=== PATIENT | female | born 1975 | race Caucasian/White ===

== ENCOUNTER 2023-03-14 12:28 | Inpatient (IN) | payer MEDICAID ==
[2023-03-14] VITALS (9 sets, daily range): BP systolic 108–156; BP diastolic 61–75; PULSE 108–128; RESP 12–19; TEMP 98–98.6; O2SAT 97
[~2023-03-14] VITALS: Ht 160 cm; Wt 93.5 kg
[2023-03-14] MEDS ORDERED: SODIUM CHLORIDE 0.9% 2,750 ML IV ONE (13:00)
[2023-03-14] MEDS ORDERED: VANCOMYCIN PER PHARMACY 0 MG IV SCH ×2 (13:00→17:00)
[2023-03-14] MEDS ORDERED: ACETAMINOPHEN 325 MG TAB PO PRN ×2 (13:00→17:45)
[2023-03-14] MEDS ORDERED: SODIUM CHLORIDE 0.9% 2,100 ML IV ONE (13:00)
[2023-03-14] MEDS ORDERED: ONDANSETRON HCL 4 MG/2 ML VIAL IV ONE (13:00)
[2023-03-14] MEDS ORDERED: ALBUMIN 25% 100 ML IV ONE (13:00)
[2023-03-14] MEDS ORDERED: HYDROcodone-ACET 5/325MG TAB PO ONE (13:00)
[2023-03-14] MEDS ORDERED: fentaNYL CITRATE 100 MCG/2 ML VL IV ONE (13:00)
[2023-03-14] MEDS ORDERED: PIPERACILLIN-TAZO 4.5GM 100 ML IV SCH (14:00)
[2023-03-14 14:05] LABS: Alanine Aminotransferase 14 U/L (7-40); Albumin 3.1 g/dL (3.2-4.8); Alkaline Phosphatase 68 U/L (46-116); Anion Gap 16 (5-15); Aspartate Aminotransferase 16 U/L (13-40); BUN/Creatinine Ratio 10.8 (10.0-20.0); Bilirubin, Total 0.2 mg/dL (0.2-1.0); Blood Alcohol < 3.0 mg/dL (<10); Blood Urea Nitrogen 32 mg/dL (9-23); Calcium 8.7 mg/dL (8.5-10.1); Carbon Dioxide 14 mmol/L (20-30); Chloride 106 mmol/L (98-107); Glucose 321 mg/dL (74-106); Lactic Acid w/Reflex 5.3 mmol/L (0.4-2.0); Potassium 3.5 mmol/L (3.5-5.1); Sodium 136 mmol/L (136-145); Total Protein 5.9 g/dL (5.7-8.2)
[2023-03-14 14:09] LABS: INR 1.03 (0.9-1.15); Partial Thromboplastin Time 27.9 SEC (24.5-34.5); Prothrombin Time 10.8 sec (9.3-11.8)
[2023-03-14 14:20] LABS: Lipase 40 U/L (12-53); Magnesium 2.3 mg/dL (1.6-2.6)
[2023-03-14 14:30] LABS: Erythrocyte Sedimentation Rate 61 mm/hr (0-20)
[2023-03-14] MEDS ORDERED: VANCOMYCIN 1GM/200ML 200 ML IV ONE (15:30)
[2023-03-14 16:48] LABS: Eosinophils # (auto) 0 10 ^3/uL (0-0.8); Lymphocytes # (auto) 0.8 10 ^3/uL (0.4-5.4)
[2023-03-14 16:49] LABS: Basophils # (auto) 0.1 10 ^3/uL (0-0.2); Basophils % (auto) 0.3 % (0.0-2.0); Hematocrit 19.4 % (36.0-46.0); Mean Corpuscular Hemoglobin 25.8 pg (28.0-32.0); Mean Corpuscular Hgb Conc. 30.8 g/dL (32.0-36.0); Monocytes % (auto) 5.2 % (0.0-12.0); Neutrophils # (auto) 17.8 10 ^3/uL (1.6-8.6); Neutrophils % (auto) 90.5 % (37.0-80.0); Nucleated Red Blood Cells % 0.1 %; Red Blood Cells 2.31 10^6/uL (4.0-5.20); Red Cell Distribution Width 16.5 % (11.8-14.3); White Blood Cell 19.7 10^3/uL (4.4-10.8)
[2023-03-14] MEDS: CEFEPIME 1GM/ 50ML 50 ML IV SCH (17:31)
[2023-03-14] MEDS ORDERED: MORPHINE SULFATE INJ 2 MG/ml SYRG IV PRN (17:45)
[2023-03-14] MEDS ORDERED: NITROGLYCERIN 0.4 MG SL TAB SL PRN (17:45)
[2023-03-14] MEDS ORDERED: DEXTROSE (50%) 50ML SYRG IV PRN (17:45)
[2023-03-14] MEDS ORDERED: GLIP10TA9 PO (17:48)
[2023-03-14] MEDS ORDERED: ATOR20TA50 PO (17:48)
[2023-03-14] MEDS ORDERED: EMPA1TAB PO (17:48)
[2023-03-14] MEDS ORDERED: METO-289 PO (17:48)
[2023-03-14] MEDS ORDERED: GLUC1TES94 (17:48)
[2023-03-14] MEDS ORDERED: LOSA50TA46 PO (17:48)
[2023-03-14 18:10] LABS: Triglycerides 151 mg/dL (< 150)
[2023-03-14 18:11] LABS: LDL Cholesterol 61 mg/dL (< 100)
[2023-03-14 18:12] LABS: Cholesterol 118 mg/dL (< 200); HDL Cholesterol 25 mg/dL (40-59)
[2023-03-14 19:05] LABS: % Iron Saturation 11.4 % (15-50)
[2023-03-14 19:18] LABS: Basophils # (auto) 0.1 10 ^3/uL (0-0.2); Basophils % (auto) 0.4 % (0.0-2.0); Eosinophils # (auto) 0 10 ^3/uL (0-0.8); Hematocrit 18.4 % (36.0-46.0); Lymphocytes # (auto) 0.9 10 ^3/uL (0.4-5.4); Mean Corpuscular Hemoglobin 25.6 pg (28.0-32.0); Mean Corpuscular Hgb Conc. 30.5 g/dL (32.0-36.0); Monocytes # (auto) 0.8 10 ^3/uL (0-1.3); Monocytes % (auto) 4.4 % (0.0-12.0); Neutrophils # (auto) 15.8 10 ^3/uL (1.6-8.6); Neutrophils % (auto) 90.2 % (37.0-80.0); Red Blood Cells 2.19 10^6/uL (4.0-5.20); Red Cell Distribution Width 16.3 % (11.8-14.3); White Blood Cell 17.5 10^3/uL (4.4-10.8)
[2023-03-14 19:25] LABS: Hemoglobin 5.6 g/dL (12.2-16.2)
[2023-03-14 19:36] LABS: Urine Bacteria MANY /hpf (None Seen); Urine Blood Negative /uL (Negative); Urine Clarity HAZY (Clear); Urine Color Colorless (Yellow); Urine Mucus FEW (None Seen); Urine Protein, UAD 1+ (Negative); Urine Specific Gravity 1.009 (1.001-1.035); Urine Urobilinogen Normal (Negative); Urine WBC 2 /hpf (0 - 5)
[2023-03-14 19:40] LABS: Sodium Urine 25 mmol/L (40-220)
[2023-03-14] MEDS: SODIUM CHLORIDE 0.9% 1,000 ML IV SCH (19:44)
[2023-03-14 19:45] LABS: Protein, Urine 61.1 mg/dL (0.0-11.9)
[2023-03-14 19:46] LABS: Amphetamine Screen, Urine Neg (NEGATIVE)
[2023-03-14 19:47] LABS: Barbiturate Scree,Urine Neg (NEGATIVE); Benzodiazephine Screen, Urine Neg (NEGATIVE); Cannabinoid Screen, Urine Neg (NEGATIVE); Cocaine Screen, Urine Neg (NEGATIVE); Creatinine, Urine 58.11 mg/dL (30.0-125.0); Opiate Scree,Urine Neg (NEGATIVE); Phencyclidine Screen, Urine Neg (NEGATIVE); Urine Protein/Creatinine Ratio 1.05
[2023-03-14 20:11] LABS: Chloride 113 mmol/L (98-107); Sodium 142 mmol/L (136-145)
[2023-03-14 20:12] LABS: Anion Gap 12 (5-15); Calcium 7.8 mg/dL (8.5-10.1); Carbon Dioxide 17 mmol/L (20-30)
[2023-03-14 20:17] LABS: BUN/Creatinine Ratio 14.2 (10.0-20.0); Blood Urea Nitrogen 36 mg/dL (9-23); Glucose 133 mg/dL (74-106)
[2023-03-14 20:19] LABS: Anisocytosis Slight; Large Platelets FEW; Macrocytosis Slight; Ovalocytes FEW
[2023-03-14 20:20] LABS: Platelet Estimate Adequa
[2023-03-14] MEDS: ACCU-CHEK COMFORT CURVE STRIP VI SCH (22:48)
[2023-03-14] MEDS: InsuLIN REG 1unit/0.01ml Soln (100units/ml) SC SCH (22:48)
[2023-03-14] MEDS: HYDROcodone-ACET 5/325MG TAB PO PRN (22:54)
[2023-03-14] MEDS: ASCORBIC ACID 500 MG TAB PO SCH (22:54)
[2023-03-15] VITALS (11 sets, daily range): BP systolic 137–170; BP diastolic 59–83; PULSE 86–118; RESP 13–21; TEMP 98–98.6; O2SAT 97–100
[2023-03-15] MEDS: HYDROcodone-ACET 5/325MG TAB PO PRN ×2 (04:06→18:01)
[2023-03-15 06:31] LABS: Basophils % (auto) 0.4 % (0.0-2.0); Eosinophils # (auto) 0 10 ^3/uL (0-0.8); Eosinophils % (auto) 0.1 % (0.0-7.0); Lymphocytes # (auto) 1.2 10 ^3/uL (0.4-5.4)
[2023-03-15 06:36] LABS: Basophils # (auto) 0 10 ^3/uL (0-0.2); Hemoglobin 8.1 g/dL (12.2-16.2); Mean Corpuscular Hemoglobin 27.8 pg (28.0-32.0); Mean Corpuscular Hgb Conc. 31.2 g/dL (32.0-36.0); Mean Corpuscular Volume 89.1 fL (80.0-100.0); Monocytes % (auto) 7.7 % (0.0-12.0); Neutrophils % (auto) 82.8 % (37.0-80.0); Nucleated Red Blood Cells % 0.1 %; Red Blood Cells 2.92 10^6/uL (4.0-5.20); Red Cell Distribution Width 17.6 % (11.8-14.3); White Blood Cell 13.2 10^3/uL (4.4-10.8)
[2023-03-15] MEDS: ACCU-CHEK COMFORT CURVE STRIP VI SCH ×4 (06:36→21:49)
[2023-03-15] MEDS: InsuLIN REG 1unit/0.01ml Soln (100units/ml) SC SCH ×4 (06:36→21:49)
[2023-03-15 06:50] LABS: Albumin 2.9 g/dL (3.2-4.8); Alkaline Phosphatase 54 U/L (46-116); Anion Gap 12 (5-15); Aspartate Aminotransferase 19 U/L (13-40); BUN/Creatinine Ratio 13.9 (10.0-20.0); Bilirubin, Total 0.3 mg/dL (0.2-1.0); Blood Urea Nitrogen 34 mg/dL (9-23); Calcium 7.7 mg/dL (8.7-10.4); Carbon Dioxide 15 mmol/L (20-30); Chloride 113 mmol/L (98-107); Glucose 109 mg/dL (74-106); Sodium 140 mmol/L (136-145); Total Protein 4.8 g/dL (5.7-8.2)
[2023-03-15 06:51] LABS: Alanine Aminotransferase < 9 U/L (7-40)
[2023-03-15] MEDS: SODIUM CHLORIDE 0.9% 1,000 ML IV SCH ×2 (09:07→19:00)
[2023-03-15] MEDS: CEFEPIME 1GM/ 50ML 50 ML IV SCH (09:07)
[2023-03-15] MEDS: ZINC SULFATE 220mg CAP or TAB PO SCH (09:08)
[2023-03-15] MEDS: MULTIPLE VITAMIN TAB PO SCH (09:08)
[2023-03-15] MEDS: ASCORBIC ACID 500 MG TAB PO SCH ×2 (09:08→21:45)
[2023-03-15 10:11] LABS: Basophils # (auto) 0.1 10 ^3/uL (0-0.2); Basophils % (auto) 0.4 % (0.0-2.0); Eosinophils # (auto) 0 10 ^3/uL (0-0.8); Eosinophils % (auto) 0.1 % (0.0-7.0); Hemoglobin 8.5 g/dL (12.2-16.2); Red Cell Distribution Width 17.4 % (11.8-14.3)
[2023-03-15 10:12] LABS: Hematocrit 27.2 % (36.0-46.0); Lymphocytes # (auto) 1.1 10 ^3/uL (0.4-5.4); Lymphocytes % (auto) 7.5 % (10.0-50.0); Mean Corpuscular Hemoglobin 27.2 pg (28.0-32.0); Mean Corpuscular Hgb Conc. 31.4 g/dL (32.0-36.0); Mean Corpuscular Volume 86.6 fL (80.0-100.0); Monocytes % (auto) 7.4 % (0.0-12.0); Neutrophils # (auto) 11.8 10 ^3/uL (1.6-8.6); Neutrophils % (auto) 84.6 % (37.0-80.0); Red Blood Cells 3.14 10^6/uL (4.0-5.20)
[2023-03-15] MEDS ORDERED: VANCOMYCIN 500 MG in D5W 5% 100 ML IV ONE (12:00)
[2023-03-15] MEDS: FERROUS SULFATE 325mg EC TAB PO SCH (17:39)
[2023-03-15] MEDS: METOPROLOL SUCCINATE XL 50 MG TAB PO SCH (17:45)
[2023-03-16] VITALS (8 sets, daily range): BP systolic 142–153; BP diastolic 64–79; PULSE 81–99; RESP 17–20; TEMP 97.5–98.6; O2SAT 96–99
[2023-03-16 05:41] LABS: Chloride 110 mmol/L (98-107); Potassium 4.2 mmol/L (3.5-5.1); Sodium 136 mmol/L (136-145)
[2023-03-16 05:42] LABS: Anion Gap 7 (5-15); Carbon Dioxide 19 mmol/L (20-30)
[2023-03-16 05:43] LABS: Basophils # (auto) 0.1 10 ^3/uL (0-0.2); Basophils % (auto) 0.5 % (0.0-2.0); Calcium 8.1 mg/dL (8.7-10.4); Eosinophils # (auto) 0.1 10 ^3/uL (0-0.8); Eosinophils % (auto) 0.5 % (0.0-7.0); Red Cell Distribution Width 17.6 % (11.8-14.3)
[2023-03-16 05:46] LABS: Hematocrit 25.6 % (36.0-46.0); Hemoglobin 8.2 g/dL (12.2-16.2); Lymphocytes # (auto) 1.2 10 ^3/uL (0.4-5.4); Mean Corpuscular Hemoglobin 28.1 pg (28.0-32.0); Mean Corpuscular Hgb Conc. 32.1 g/dL (32.0-36.0); Mean Corpuscular Volume 87.4 fL (80.0-100.0); Monocytes # (auto) 1.3 10 ^3/uL (0-1.3); Monocytes % (auto) 8.7 % (0.0-12.0); Neutrophils # (auto) 12.5 10 ^3/uL (1.6-8.6); Neutrophils % (auto) 82.3 % (37.0-80.0); Red Blood Cells 2.93 10^6/uL (4.0-5.20); White Blood Cell 15.2 10^3/uL (4.4-10.8)
[2023-03-16 05:47] LABS: Glucose 119 mg/dL (74-106); Uric Acid 6.5 mg/dL (3.1-7.8)
[2023-03-16 05:48] LABS: BUN/Creatinine Ratio 9.2 (10.0-20.0)
[2023-03-16 05:50] LABS: Phosphorus 4.2 mg/dL (2.4-5.1)
[2023-03-16] MEDS: ACCU-CHEK COMFORT CURVE STRIP VI SCH ×4 (06:06→21:38)
[2023-03-16] MEDS: InsuLIN REG 1unit/0.01ml Soln (100units/ml) SC SCH ×2 (06:06→11:30)
[2023-03-16 06:22] LABS: Blood Urea Nitrogen 24 mg/dL (9-23)
[2023-03-16] MEDS: CEFEPIME 1GM/ 50ML 50 ML IV SCH (10:55)
[2023-03-16] MEDS: ZINC SULFATE 220mg CAP or TAB PO SCH (10:56)
[2023-03-16] MEDS: ASCORBIC ACID 500 MG TAB PO SCH ×2 (10:56→21:01)
[2023-03-16] MEDS: FERROUS SULFATE 325mg EC TAB PO SCH (10:56)
[2023-03-16] MEDS: MULTIPLE VITAMIN TAB PO SCH (10:56)
[2023-03-16] MEDS: METOPROLOL SUCCINATE XL 50 MG TAB PO SCH (10:59)
[2023-03-16 11:05] LABS: Folate (Folic Acid) 6.6 ng/mL (>5.38)
[2023-03-16 11:06] LABS: Ferritin 455.5 ng/mL (10-291)
[2023-03-16 11:52] LABS: Urine Bacteria FEW /hpf (None Seen); Urine Blood Negative /uL (Negative); Urine Clarity Clear (Clear); Urine Color Colorless (Yellow); Urine Protein, UAD 1+ (Negative); Urine Urobilinogen Normal (Negative); Urine WBC 1 /hpf (0 - 5)
[2023-03-16 11:59] LABS: Protein, Urine 73.3 mg/dL (0.0-11.9)
[2023-03-16 12:02] LABS: Creatinine, Urine 59.65 mg/dL (30.0-125.0)
[2023-03-17 05:00] VITALS: BP 147/71; PULSE 88; RESP 18; TEMP 98.5; O2SAT 98
[2023-03-17] MEDS: ACCU-CHEK COMFORT CURVE STRIP VI SCH ×3 (06:09→16:36)
[2023-03-17 06:28] LABS: Basophils # (auto) 0.1 10 ^3/uL (0-0.2); Basophils % (auto) 0.5 % (0.0-2.0); Eosinophils # (auto) 0.1 10 ^3/uL (0-0.8); Hemoglobin 7.8 g/dL (12.2-16.2); Lymphocytes # (auto) 1.5 10 ^3/uL (0.4-5.4)
[2023-03-17 06:30] LABS: Eosinophils % (auto) 0.8 % (0.0-7.0); Hematocrit 24.5 % (36.0-46.0); Lymphocytes % (auto) 10.5 % (10.0-50.0); Mean Corpuscular Hemoglobin 27.7 pg (28.0-32.0); Mean Corpuscular Volume 86.6 fL (80.0-100.0); Monocytes % (auto) 7.4 % (0.0-12.0); Neutrophils # (auto) 11.2 10 ^3/uL (1.6-8.6); Neutrophils % (auto) 80.8 % (37.0-80.0); Red Blood Cells 2.83 10^6/uL (4.0-5.20); Red Cell Distribution Width 17.6 % (11.8-14.3); White Blood Cell 13.8 10^3/uL (4.4-10.8)
[2023-03-17 08:00] VITALS: PULSE 77
[2023-03-17 09:00] VITALS: BP 157/85; PULSE 100; RESP 20; TEMP 98.2; O2SAT 96
[2023-03-17] MEDS: MULTIPLE VITAMIN TAB PO SCH (09:05)
[2023-03-17] MEDS: ASCORBIC ACID 500 MG TAB PO SCH (09:05)
[2023-03-17] MEDS: CEFEPIME 1GM/ 50ML 50 ML IV SCH (09:06)
[2023-03-17] MEDS: METOPROLOL SUCCINATE XL 50 MG TAB PO SCH (09:06)
[2023-03-17] MEDS: FERROUS SULFATE 325mg EC TAB PO SCH (09:06)
[2023-03-17] MEDS ORDERED: DAKINS QUARTER STR 0.125% (NaHypochlorite) 473 ML TOPICAL SOL TOP SCH (10:00)
[2023-03-17 11:39] LABS: Chloride 110 mmol/L (98-107); Potassium 4.2 mmol/L (3.5-5.1); Sodium 138 mmol/L (136-145)
[2023-03-17 11:40] LABS: Anion Gap 9 (5-15); Calcium 8.6 mg/dL (8.5-10.1); Carbon Dioxide 19 mmol/L (20-30)
[2023-03-17 11:45] LABS: Blood Urea Nitrogen 23 mg/dL (9-23); Glucose 93 mg/dL (74-106)
[2023-03-17 13:00] VITALS: BP 157/71; PULSE 82; RESP 17; TEMP 97.4; O2SAT 99
[2023-03-17] MEDS ORDERED: amLODIPine BESYLATE 5 MG TAB PO ONE (13:00)
[2023-03-17] MEDS ORDERED: METR-344 PO (15:05)
[2023-03-17] MEDS ORDERED: [UNRECOGNIZED DRUG - CODE] XX (15:05)
[2023-03-17] MEDS ORDERED: AMOX500T86 PO ×2 (15:05)
[2023-03-17] MEDS ORDERED: AMLO1TAB23 PO (15:05)
[2023-03-17] MEDS ORDERED: GAUZ1PAD XX (15:05)
[2023-03-17 17:00] VITALS: BP 158/74; PULSE 77; RESP 17; TEMP 98.1; O2SAT 100
[2023-03-17 17:21] VITALS: BP 157/71; PULSE 100; TEMP 36.3
[2023-03-17] MEDS ORDERED: ATORVASTATIN 20 MG TAB PO SCH (22:00)
[2023-03-18] MEDS ORDERED: METOPROLOL SUCCINATE XL 50 MG TAB PO SCH (10:00)
[2023-03-18] MEDS ORDERED: EMPAGLIFLOZIN 10 MG TAB PO SCH (10:00)
[2023-03-18] MEDS ORDERED: DOXY-448 PO (16:13)
== END 2023-03-17 18:35 | disposition home or self-care (01) | DRG 382 ==
LOC: EDBD 12:28 → ER 12:28 → TELE 17:47 → TELE-EAST 03-15 14:28
PROVIDERS: ADMIT Nurse Practitioner Family; ATTEND Hospitalist
PROC: 30233N1 Transfusion of Nonautologous Red Blood Cells into Peripheral Vein, Percutaneous Approach (ICD-10-PCS; principal; 2023-03-14)
PROC: 05HD33Z Insertion of Infusion Device into Right Cephalic Vein, Percutaneous Approach (ICD-10-PCS; 2023-03-14)
DX: C50.912 Malignant neoplasm of unspecified site of left female breast (principal); N17.9 Acute kidney failure, unspecified; B48.8 Other specified mycoses; E86.0 Dehydration; D62 Acute posthemorrhagic anemia; E11.65 Type 2 diabetes mellitus with hyperglycemia; E66.01 Morbid (severe) obesity due to excess calories; D63.0 Anemia in neoplastic disease; F19.90 Other psychoactive substance use, unspecified, uncomplicated; R91.8 Other nonspecific abnormal finding of lung field; I10 Essential (primary) hypertension; Z68.34 Body mass index [BMI] 34.0-34.9, adult; Z88.0 Allergy status to penicillin; Z85.3 Personal history of malignant neoplasm of breast; Z59.7 Insufficient social insurance and welfare support
CPT/HCPCS: 36415; 70450; 71045; 71250; 74176; 76775; 80048; 80053; 80061; 80202; 80307; 80320; 81001; 82570; 82607; 82728; 82746; 82962; 83036; 83540; 83550; 83605; 83615; 83690; 83735; 83880; 83930; 84100; 84156; 84300; 84443; 84484; 84550; 85025; 85045; 85384; 85610; 85652; 85730; 86141; 86850; 86900; 86901; 86920; 87040; 87086; 93005; G0378; J1815; J2405; J2543; J7060; P9047

== ENCOUNTER 2023-05-04 09:40 | Emergency (ER) | payer MEDICAID ==
[~2023-05-04] VITALS: Ht 160 cm; Wt 78.6 kg
[~2023-05-04 09:40] MED LIST: AMLO1TAB23 PO; ATOR20TA50 PO; DOXY-448 PO; EMPA1TAB PO; GAUZ1PAD XX; GLUC1TES94; METO-289 PO; METR-344 PO; [UNRECOGNIZED DRUG - CODE] XX
[2023-05-04 10:35] VITALS: PULSE 111; RESP 17; TEMP 99.3; O2SAT 98
[2023-05-04 12:12] LABS: Basophils # (auto) 0 10 ^3/uL (0-0.2); Basophils % (auto) 0.4 % (0.0-2.0); Eosinophils # (auto) 0.1 10 ^3/uL (0-0.8); Eosinophils % (auto) 0.7 % (0.0-7.0); Hematocrit 32.6 % (36.0-46.0); Hemoglobin 10.6 g/dL (12.2-16.2); Lymphocytes # (auto) 0.6 10 ^3/uL (0.4-5.4); Lymphocytes % (auto) 5.3 % (10.0-50.0); Mean Corpuscular Hemoglobin 29.1 pg (28.0-32.0); Mean Corpuscular Hgb Conc. 32.5 g/dL (32.0-36.0); Mean Corpuscular Volume 89.4 fL (80.0-100.0); Monocytes # (auto) 0.7 10 ^3/uL (0-1.3); Monocytes % (auto) 5.9 % (0.0-12.0); Neutrophils # (auto) 10.4 10 ^3/uL (1.6-8.6); Neutrophils % (auto) 87.7 % (37.0-80.0); Red Blood Cells 3.65 10^6/uL (4.0-5.20); White Blood Cell 11.8 10^3/uL (4.4-10.8)
[2023-05-04 12:17] LABS: Chloride 113 mmol/L (98-107); Potassium 4.1 mmol/L (3.5-5.1); Sodium 141 mmol/L (136-145)
[2023-05-04 12:18] LABS: Anion Gap 8 (5-15); Calcium 8.9 mg/dL (8.5-10.1); Carbon Dioxide 20 mmol/L (20-30)
[2023-05-04] MEDS: ONDANSETRON HCL 4 MG/2 ML VIAL IV ONE (12:21)
[2023-05-04] MEDS: MORPHINE SULFATE 4 MG/ML SYR/VIAL IV ONE (12:22)
[2023-05-04 12:23] LABS: BUN/Creatinine Ratio 9.7 (10.0-20.0); Blood Urea Nitrogen 18 mg/dL (9-23); Glucose 141 mg/dL (74-106)
[2023-05-04] MEDS: SODIUM CHLORIDE 0.9% 1,000 ML IV ONE (15:18)
[2023-05-04 16:30] VITALS: BP 134/86; PULSE 120; RESP 13; O2SAT 100
== END 2023-05-04 18:22 | disposition left against medical advice (07) ==
LOC: ER 09:40
DX: C50.912 Malignant neoplasm of unspecified site of left female breast (principal); C78.7 Secondary malignant neoplasm of liver and intrahepatic bile duct; I12.9 Hypertensive chronic kidney disease with stage 1 through stage 4 chronic kidney disease, or unspecified chronic kidney disease; N18.9 Chronic kidney disease, unspecified; E78.5 Hyperlipidemia, unspecified; E11.9 Type 2 diabetes mellitus without complications; Z86.73 Personal history of transient ischemic attack (TIA), and cerebral infarction without residual deficits; Z79.899 Other long term (current) drug therapy; Z88.1 Allergy status to other antibiotic agents
CPT/HCPCS: 36415; 71250; 74176; 80048; 83605; 85025; 87040; 96361; 96374; 96375; 99285; J2270; J2405; J7030

== ENCOUNTER 2023-05-06 13:10 | Inpatient (IN) | payer MEDICAID ==
[~2023-05-06] VITALS: Ht 160 cm; Wt 81.5 kg
[2023-05-06 13:55] VITALS: PULSE 130; RESP 14; O2SAT 99
[2023-05-06] MEDS: SODIUM CHLORIDE 0.9% 1,000 ML IV ONE ×4 (14:21→17:54)
[2023-05-06 14:43] LABS: Hematocrit 22.5 % (36.0-46.0); Mean Corpuscular Hemoglobin 27.8 pg (28.0-32.0); Mean Corpuscular Volume 89.5 fL (80.0-100.0); Red Blood Cells 2.51 10^6/uL (4.0-5.20); White Blood Cell 21.1 10^3/uL (4.4-10.8)
[2023-05-06 15:00] LABS: Alanine Aminotransferase 18 U/L (7-40); Albumin 2.9 g/dL (3.2-4.8); Alkaline Phosphatase 71 U/L (46-116); Anion Gap 12 (5-15); Aspartate Aminotransferase 23 U/L (13-40); BUN/Creatinine Ratio 11.3 (10.0-20.0); Basophils % (manual) 0 (0.0-2.0); Bilirubin, Total 0.2 mg/dL (0.2-1.0); Blast Cells 0; Blood Urea Nitrogen 28 mg/dL (9-23); Calcium 8.3 mg/dL (8.5-10.1); Carbon Dioxide 16 mmol/L (20-30); Chloride 111 mmol/L (98-107); Eosinophils % (manual) 0 (0-7); Glucose 186 mg/dL (74-106); Metamyelocytes % 0; Myelocytes % 0; Potassium 4.6 mmol/L (3.5-5.1); Promyelocytes % 0; Reactive Lymphocytes 0; Sodium 139 mmol/L (136-145)
[2023-05-06 15:16] LABS: Magnesium 2.2 mg/dL (1.6-2.6)
[2023-05-06] MEDS: ONDANSETRON HCL 4 MG/2 ML VIAL IV ONE (15:50)
[2023-05-06] MEDS: VANCOMYCIN 1GM/200ML 200 ML IV ONE (15:50)
[2023-05-06 15:51] LABS: Lactic Acid w/Reflex 2.6 mmol/L (0.4-2.0)
[2023-05-06] MEDS: MORPHINE SULFATE 4 MG/ML SYR/VIAL IV ONE (15:51)
[2023-05-06 16:02] LABS: Anisocytosis Slight; Band Neutrophils % (manual) 4; Lymphocytes % (manual) 3 (10.0-50.0); Monocytes % (manual) 3 (0-12); Platelet Estimate Adequate
[2023-05-06] MEDS: SODIUM CHLORIDE 0.9% 500 ML IV ONE (17:14)
[2023-05-06] MEDS: AZTREONAM 1GM INJ 1 GM in D5W 5% 50 ML IV ONE (17:27)
[2023-05-06] MEDS ORDERED: VANCOMYCIN PER PHARMACY 0 MG IV SCH (19:45)
[2023-05-06] MEDS ORDERED: DOCUSATE SOD 100 MG CAP PO PRN (19:45)
[2023-05-06] MEDS ORDERED: ONDANSETRON HCL 4 MG/2 ML VIAL IV PRN (19:45)
[2023-05-06] MEDS ORDERED: DEXTROSE (50%) 50ML SYRG IV PRN (19:45)
[2023-05-06] MEDS ORDERED: VANCOMYCIN 1GM/200ML 200 ML IV ONE (20:45)
[2023-05-06] MEDS: SODIUM CHLORIDE 0.9% 1,000 ML IV SCH (21:09)
[2023-05-06 21:15] LABS: Hematocrit 17.1 % (36.0-46.0)
[2023-05-06 21:24] LABS: INR 1.07 (0.9-1.15); Prothrombin Time 11.2 sec (9.3-11.8)
[2023-05-06 21:57] LABS: Hemoglobin 5.3 g/dL (12.2-16.2)
[2023-05-06] MEDS: CLINDAMYCIN 300MG IV 50 ML IV SCH (22:36)
[2023-05-06] MEDS: ACCU-CHEK COMFORT CURVE STRIP VI SCH (22:36)
[2023-05-06] MEDS: InsuLIN REG 1unit/0.01ml Soln (100units/ml) SC SCH (22:37)
[2023-05-06 23:29] VITALS: PULSE 111; RESP 20; O2SAT 94
[2023-05-06 23:59] LABS: Urine Bacteria MANY /hpf (None Seen); Urine Blood 2+ /uL (Negative); Urine Clarity HAZY (Clear); Urine Color Colorless (Yellow); Urine Protein, UAD 1+ (Negative); Urine Specific Gravity 1.011 (1.001-1.035); Urine Urobilinogen Normal (Negative); Urine WBC 2 /hpf (0 - 5)
[2023-05-07] VITALS (15 sets, daily range): BP systolic 134–153; BP diastolic 59–75; PULSE 93–111; RESP 14–19; TEMP 97.6–99.2; O2SAT 94–98
[2023-05-07] MEDS: MORPHINE SULFATE INJ 2 MG/ml SYRG IV PRN (02:02)
[2023-05-07 06:51] LABS: Basophils # (auto) 0.1 10 ^3/uL (0-0.2); Eosinophils # (auto) 0 10 ^3/uL (0-0.8); Eosinophils % (auto) 0.3 % (0.0-7.0); Nucleated Red Blood Cells % 0.1 %
[2023-05-07 06:55] LABS: Basophils % (auto) 0.9 % (0.0-2.0); Hematocrit 21.5 % (36.0-46.0); Lymphocytes # (auto) 1.2 10 ^3/uL (0.4-5.4); Lymphocytes % (auto) 9.8 % (10.0-50.0); Mean Corpuscular Hemoglobin 28.8 pg (28.0-32.0); Mean Corpuscular Hgb Conc. 31.7 g/dL (32.0-36.0); Mean Corpuscular Volume 90.8 fL (80.0-100.0); Monocytes # (auto) 0.8 10 ^3/uL (0-1.3); Neutrophils # (auto) 9.9 10 ^3/uL (1.6-8.6); Red Blood Cells 2.36 10^6/uL (4.0-5.20); Red Cell Distribution Width 16.4 % (11.8-14.3); White Blood Cell 12.1 10^3/uL (4.4-10.8)
[2023-05-07 07:01] LABS: Alanine Aminotransferase 13 U/L (7-40); Alkaline Phosphatase 57 U/L (46-116); Anion Gap 8 (5-15); Aspartate Aminotransferase 20 U/L (13-40); BUN/Creatinine Ratio 12.1 (10.0-20.0); Blood Urea Nitrogen 25 mg/dL (9-23); Calcium 7.7 mg/dL (8.5-10.1); Carbon Dioxide 18 mmol/L (20-30); Chloride 114 mmol/L (98-107); Glucose 73 mg/dL (74-106); Potassium 4.4 mmol/L (3.5-5.1); Sodium 140 mmol/L (136-145)
[2023-05-07 07:02] LABS: Albumin 2.4 g/dL (3.2-4.8)
[2023-05-07 07:03] LABS: Bilirubin, Total 0.2 mg/dL (0.2-1.0); Total Protein 4.2 g/dL (5.7-8.2)
[2023-05-07 07:09] LABS: Hemoglobin 6.8 g/dL (12.2-16.2)
[2023-05-07] MEDS: VANCOMYCIN 1GM/200ML 200 ML IV SCH (11:21)
[2023-05-07 11:52] LABS: Basophils # (auto) 0 10 ^3/uL (0-0.2); Eosinophils # (auto) 0.2 10 ^3/uL (0-0.8); Eosinophils % (auto) 2.2 % (0.0-7.0); Hematocrit 25.7 % (36.0-46.0); Hemoglobin 7.7 g/dL (12.2-16.2); Lymphocytes # (auto) 0.9 10 ^3/uL (0.4-5.4); Lymphocytes % (auto) 8.8 % (10.0-50.0); Mean Corpuscular Hemoglobin 29.1 pg (28.0-32.0); Mean Corpuscular Hgb Conc. 30.1 g/dL (32.0-36.0); Mean Corpuscular Volume 96.7 fL (80.0-100.0); Monocytes # (auto) 2.7 10 ^3/uL (0-1.3); Neutrophils # (auto) 6.3 10 ^3/uL (1.6-8.6); Red Blood Cells 2.66 10^6/uL (4.0-5.20); White Blood Cell 10.1 10^3/uL (4.4-10.8)
[2023-05-07 21:54] LABS: Hemoglobin 7.7 g/dL (12.2-16.2)
[2023-05-07 21:56] LABS: Hematocrit 24.2 % (36.0-46.0)
[2023-05-08] VITALS (7 sets, daily range): BP systolic 144–162; BP diastolic 60–72; PULSE 71–89; RESP 16–18; TEMP 98.1–99; O2SAT 96–99
[2023-05-08 07:17] LABS: Basophils % (auto) 0.5 % (0.0-2.0); Eosinophils # (auto) 0.1 10 ^3/uL (0-0.8); Lymphocytes # (auto) 0.9 10 ^3/uL (0.4-5.4); Neutrophils # (auto) 7.5 10 ^3/uL (1.6-8.6)
[2023-05-08 07:18] LABS: Basophils # (auto) 0.1 10 ^3/uL (0-0.2); Eosinophils % (auto) 1.3 % (0.0-7.0); Hematocrit 22.6 % (36.0-46.0); Hemoglobin 7.5 g/dL (12.2-16.2); Lymphocytes % (auto) 9.2 % (10.0-50.0); Mean Corpuscular Hgb Conc. 33.3 g/dL (32.0-36.0); Mean Corpuscular Volume 90.1 fL (80.0-100.0); Monocytes # (auto) 0.8 10 ^3/uL (0-1.3); Monocytes % (auto) 8.2 % (0.0-12.0); Neutrophils % (auto) 80.8 % (37.0-80.0); Red Blood Cells 2.51 10^6/uL (4.0-5.20); Red Cell Distribution Width 15.2 % (11.8-14.3); White Blood Cell 9.2 10^3/uL (4.4-10.8)
[2023-05-08 07:32] LABS: Albumin 2.5 g/dL (3.2-4.8); Alkaline Phosphatase 59 U/L (46-116); Anion Gap 7 (5-15); Aspartate Aminotransferase 19 U/L (13-40); BUN/Creatinine Ratio 10.2 (10.0-20.0); Blood Urea Nitrogen 18 mg/dL (9-23); Calcium 7.9 mg/dL (8.5-10.1); Carbon Dioxide 19 mmol/L (20-30); Chloride 115 mmol/L (98-107); Glucose 81 mg/dL (74-106); Potassium 3.7 mmol/L (3.5-5.1); Sodium 141 mmol/L (136-145)
[2023-05-08 07:33] LABS: Bilirubin, Total 0.2 mg/dL (0.2-1.0); Total Protein 4.5 g/dL (5.7-8.2)
[2023-05-08 07:37] LABS: Alanine Aminotransferase 9 U/L (7-40)
[2023-05-08] MEDS ORDERED: LOSA50TA46 PO (10:10)
[2023-05-08] MEDS ORDERED: EMPA1TAB PO (10:10)
[2023-05-08] MEDS: METOPROLOL SUCCINATE XL 50 MG TAB PO ONE (12:11)
[2023-05-09] VITALS (8 sets, daily range): BP systolic 146–176; BP diastolic 56–86; PULSE 76–106; RESP 14–20; TEMP 98–98.9; O2SAT 96–99
[2023-05-09] MEDS: METOPROLOL SUCCINATE XL 50 MG TAB PO SCH (09:14)
[2023-05-09 11:51] LABS: Chloride 115 mmol/L (98-107); Potassium 3.6 mmol/L (3.5-5.1); Sodium 140 mmol/L (136-145)
[2023-05-09 11:52] LABS: Anion Gap 8 (5-15); Calcium 7.8 mg/dL (8.7-10.4); Carbon Dioxide 17 mmol/L (20-30)
[2023-05-09 11:53] LABS: Basophils # (auto) 0.1 10 ^3/uL (0-0.2); Basophils % (auto) 0.6 % (0.0-2.0); Eosinophils # (auto) 0.1 10 ^3/uL (0-0.8); Eosinophils % (auto) 1.4 % (0.0-7.0); Hematocrit 22.9 % (36.0-46.0); Hemoglobin 7.3 g/dL (12.2-16.2); Lymphocytes # (auto) 0.8 10 ^3/uL (0.4-5.4); Lymphocytes % (auto) 9.7 % (10.0-50.0); Mean Corpuscular Hemoglobin 28.7 pg (28.0-32.0); Mean Corpuscular Hgb Conc. 31.9 g/dL (32.0-36.0); Mean Corpuscular Volume 89.8 fL (80.0-100.0); Monocytes # (auto) 0.7 10 ^3/uL (0-1.3); Monocytes % (auto) 8.1 % (0.0-12.0); Neutrophils # (auto) 6.9 10 ^3/uL (1.6-8.6); Neutrophils % (auto) 80.2 % (37.0-80.0); Red Blood Cells 2.55 10^6/uL (4.0-5.20); Red Cell Distribution Width 15.5 % (11.8-14.3); White Blood Cell 8.6 10^3/uL (4.4-10.8)
[2023-05-09 11:57] LABS: Blood Urea Nitrogen 16 mg/dL (9-23); Glucose 115 mg/dL (74-106)
[2023-05-09] MEDS: hydrALAZINE HCL 20 MG/ML VL IV PRN (12:36)
[2023-05-09] MEDS: VANCOMYCIN 750mg/150ml 150 ML IV SCH (17:49)
[2023-05-10] VITALS (8 sets, daily range): BP systolic 147–159; BP diastolic 69–87; PULSE 16–103; RESP 14–20; TEMP 98.1–99.1; O2SAT 95–98
[2023-05-10 06:01] LABS: Basophils # (auto) 0.1 10 ^3/uL (0-0.2); Basophils % (auto) 0.8 % (0.0-2.0); Eosinophils # (auto) 0.2 10 ^3/uL (0-0.8); Monocytes # (auto) 0.8 10 ^3/uL (0-1.3)
[2023-05-10 06:06] LABS: Eosinophils % (auto) 1.9 % (0.0-7.0); Hematocrit 23.3 % (36.0-46.0); Hemoglobin 7.6 g/dL (12.2-16.2); Mean Corpuscular Hemoglobin 29.8 pg (28.0-32.0); Mean Corpuscular Hgb Conc. 32.8 g/dL (32.0-36.0); Mean Corpuscular Volume 90.9 fL (80.0-100.0); Monocytes % (auto) 9.4 % (0.0-12.0); Neutrophils # (auto) 6.7 10 ^3/uL (1.6-8.6); Neutrophils % (auto) 76.9 % (37.0-80.0); Red Blood Cells 2.56 10^6/uL (4.0-5.20); Red Cell Distribution Width 15.3 % (11.8-14.3); White Blood Cell 8.7 10^3/uL (4.4-10.8)
[2023-05-10 06:40] LABS: Alanine Aminotransferase 17 U/L (7-40); Albumin 2.5 g/dL (3.2-4.8); Alkaline Phosphatase 57 U/L (46-116); Anion Gap 11 (5-15); Aspartate Aminotransferase 26 U/L (13-40); BUN/Creatinine Ratio 9.4 (10.0-20.0); Bilirubin, Total 0.2 mg/dL (0.2-1.0); Blood Urea Nitrogen 15 mg/dL (9-23); Calcium 8.1 mg/dL (8.7-10.4); Carbon Dioxide 15 mmol/L (20-30); Chloride 113 mmol/L (98-107); Glucose 74 mg/dL (74-106); Potassium 3.6 mmol/L (3.5-5.1); Sodium 139 mmol/L (136-145); Total Protein 4.8 g/dL (5.7-8.2)
[2023-05-10 14:10] LABS: Basophils # (auto) 0.1 10 ^3/uL (0-0.2); Eosinophils # (auto) 0.1 10 ^3/uL (0-0.8); Monocytes # (auto) 0.8 10 ^3/uL (0-1.3); Neutrophils # (auto) 8.8 10 ^3/uL (1.6-8.6); Red Blood Cells 2.76 10^6/uL (4.0-5.20)
[2023-05-10 14:12] LABS: Basophils % (auto) 0.7 % (0.0-2.0); Eosinophils % (auto) 0.8 % (0.0-7.0); Hematocrit 24.9 % (36.0-46.0); Hemoglobin 8.2 g/dL (12.2-16.2); Lymphocytes # (auto) 0.9 10 ^3/uL (0.4-5.4); Mean Corpuscular Hemoglobin 29.5 pg (28.0-32.0); Mean Corpuscular Hgb Conc. 32.8 g/dL (32.0-36.0); Monocytes % (auto) 7.6 % (0.0-12.0); Neutrophils % (auto) 82.9 % (37.0-80.0); Red Cell Distribution Width 15.5 % (11.8-14.3); White Blood Cell 10.6 10^3/uL (4.4-10.8)
[2023-05-10] MEDS: LOSARTAN POTASSIUM 50 MG TAB PO ONE (21:05)
[2023-05-11] VITALS (9 sets, daily range): BP systolic 140–152; BP diastolic 67–79; PULSE 81–111; RESP 14–20; TEMP 98.4–99; O2SAT 94–98
[2023-05-11 06:00] LABS: Basophils # (auto) 0.1 10 ^3/uL (0-0.2); Basophils % (auto) 0.9 % (0.0-2.0); Eosinophils # (auto) 0.1 10 ^3/uL (0-0.8); Mean Corpuscular Hemoglobin 29.6 pg (28.0-32.0); Mean Corpuscular Hgb Conc. 32.9 g/dL (32.0-36.0); Mean Corpuscular Volume 90.1 fL (80.0-100.0); Monocytes # (auto) 0.8 10 ^3/uL (0-1.3); Neutrophils # (auto) 7.8 10 ^3/uL (1.6-8.6); White Blood Cell 9.7 10^3/uL (4.4-10.8)
[2023-05-11 06:04] LABS: Eosinophils % (auto) 1.3 % (0.0-7.0); Hemoglobin 7.2 g/dL (12.2-16.2); Lymphocytes # (auto) 0.9 10 ^3/uL (0.4-5.4); Lymphocytes % (auto) 9.7 % (10.0-50.0); Monocytes % (auto) 8.1 % (0.0-12.0); Red Blood Cells 2.44 10^6/uL (4.0-5.20); Red Cell Distribution Width 15.8 % (11.8-14.3)
[2023-05-11 06:20] LABS: Alanine Aminotransferase 16 U/L (7-40); Albumin 2.7 g/dL (3.2-4.8); Alkaline Phosphatase 56 U/L (46-116); Anion Gap 10 (5-15); Aspartate Aminotransferase 23 U/L (13-40); BUN/Creatinine Ratio 10.1 (10.0-20.0); Blood Urea Nitrogen 17 mg/dL (9-23); Calcium 8.3 mg/dL (8.5-10.1); Carbon Dioxide 17 mmol/L (20-30); Chloride 114 mmol/L (98-107); Glucose 75 mg/dL (74-106); Potassium 3.7 mmol/L (3.5-5.1); Sodium 141 mmol/L (136-145)
[2023-05-11 06:21] LABS: Bilirubin, Total 0.2 mg/dL (0.2-1.0); Total Protein 4.8 g/dL (5.7-8.2)
[2023-05-11] MEDS ORDERED: LOSARTAN POTASSIUM 50 MG TAB PO SCH (10:00)
[2023-05-11] MEDS: LOSARTAN POTASSIUM 50 MG TAB PO SCH (21:23)
[2023-05-12 05:17] VITALS: BP 147/71; PULSE 76; RESP 16; TEMP 98.3; O2SAT 98
[2023-05-12 08:00] VITALS: BP 132/70; PULSE 72; PULSE 75; RESP 18; TEMP 98; O2SAT 98
[2023-05-12 08:25] VITALS: BP 132/70; PULSE 75; RESP 18; TEMP 98; O2SAT 98
[2023-05-12 12:25] VITALS: BP 145/68; PULSE 79; RESP 20; TEMP 98.4; O2SAT 97
[2023-05-12] MEDS ORDERED: CLIN300C70 PO (12:27)
[2023-05-12] MEDS ORDERED: LOSA50TA46 PO (14:05)
[2023-05-12] MEDS ORDERED: HYDR-4902 PO (14:06)
[2023-05-12 15:07] VITALS: BP 145/68; PULSE 79; RESP 20; TEMP 98.4; O2SAT 97
== END 2023-05-12 15:50 | disposition home health service (06) | DRG 720 ==
LOC: EDBD 13:10 → ER 13:10 → TELE 20:30 → TELE-WESTW 23:42
PROVIDERS: ADMIT Nurse Practitioner Family; ATTEND Internal Medicine Pulmonary Disease
PROC: 05HD33Z Insertion of Infusion Device into Right Cephalic Vein, Percutaneous Approach (ICD-10-PCS; 2023-05-06)
PROC: B54MZZA Ultrasonography of Right Upper Extremity Veins, Guidance (ICD-10-PCS; 2023-05-06)
PROC: 30233N1 Transfusion of Nonautologous Red Blood Cells into Peripheral Vein, Percutaneous Approach (ICD-10-PCS; principal; 2023-05-07)
DX: A41.9 Sepsis, unspecified organism (principal); N17.0 Acute kidney failure with tubular necrosis; E87.20 Acidosis, unspecified; D69.6 Thrombocytopenia, unspecified; E44.0 Moderate protein-calorie malnutrition; D62 Acute posthemorrhagic anemia; C78.00 Secondary malignant neoplasm of unspecified lung; C50.912 Malignant neoplasm of unspecified site of left female breast; E11.22 Type 2 diabetes mellitus with diabetic chronic kidney disease; E11.65 Type 2 diabetes mellitus with hyperglycemia; E78.5 Hyperlipidemia, unspecified; I12.9 Hypertensive chronic kidney disease with stage 1 through stage 4 chronic kidney disease, or unspecified chronic kidney disease; N18.30 Chronic kidney disease, stage 3 unspecified; Z98.51 Tubal ligation status; Z88.0 Allergy status to penicillin; Z86.73 Personal history of transient ischemic attack (TIA), and cerebral infarction without residual deficits; Z80.3 Family history of malignant neoplasm of breast; Z79.4 Long term (current) use of insulin; Z68.31 Body mass index [BMI] 31.0-31.9, adult; S20.102A Unspecified superficial injuries of breast, left breast, initial encounter
CPT/HCPCS: 36415; 80048; 80053; 80202; 81001; 82962; 83605; 83735; 84484; 85007; 85014; 85018; 85025; 85027; 85610; 86850; 86900; 86901; 86920; 87040; 87081; 87205; 99291; G0378; J2405; J3490; J7060

== ENCOUNTER 2023-08-31 17:32 | Inpatient (IN) | payer MEDICAID ==
[~2023-08-31] VITALS: Ht 167.6 cm; Wt 78.0 kg
[~2023-08-31 17:32] MED LIST changes: -AMLO1TAB23 PO; +CLIN1CAP70 PO; -DOXY-448 PO; +HYDR-4902 PO; +LOSA-534 PO; -METR-344 PO
[2023-08-31 18:58] LABS: Basophils # (auto) 0 10 ^3/uL (0-0.2); Basophils % (auto) 0.2 % (0.0-2.0); Eosinophils # (auto) 0 10 ^3/uL (0-0.8); Hematocrit 23.8 % (36.0-46.0); Hemoglobin 7.1 g/dL (12.2-16.2); Lymphocytes # (auto) 0.4 10 ^3/uL (0.4-5.4); Lymphocytes % (auto) 2.4 % (10.0-50.0); Mean Corpuscular Hemoglobin 24.7 pg (28.0-32.0); Mean Corpuscular Hgb Conc. 29.8 g/dL (32.0-36.0); Mean Corpuscular Volume 82.8 fL (80.0-100.0); Monocytes # (auto) 0.6 10 ^3/uL (0-1.3); Neutrophils # (auto) 13.9 10 ^3/uL (1.6-8.6); Neutrophils % (auto) 93.4 % (37.0-80.0); Nucleated Red Blood Cells % 0.1 %; Red Blood Cells 2.88 10^6/uL (4.0-5.20); White Blood Cell 14.9 10^3/uL (4.4-10.8)
[2023-08-31 18:59] LABS: Red Cell Distribution Width 26.5 % (11.8-14.3)
[2023-08-31 19:17] LABS: Alanine Aminotransferase 28 U/L (7-40); Alkaline Phosphatase 865 U/L (46-116); Anion Gap 29.00001 (5-15); Aspartate Aminotransferase 125 U/L (13-40); Bilirubin, Total 1.1 mg/dL (0.2-1.0); Chloride 98 mmol/L (98-107); Glucose 93 mg/dL (74-106); Potassium 4.3 mmol/L (3.5-5.1); Sodium 137 mmol/L (136-145); Total Protein 6.3 g/dL (5.7-8.2)
[2023-08-31 19:24] LABS: BUN/Creatinine Ratio 34.2 (10.0-20.0)
[2023-08-31 19:28] LABS: Blood Urea Nitrogen 150 mg/dL (9-23); Carbon Dioxide < 10 mmol/L (20-30)
[2023-08-31 19:57] LABS: Anisocytosis Moderate; Hypochromia Moderate; Platelet Estimate Adequate
[2023-08-31 22:00] VITALS: PULSE 104; RESP 19; O2SAT 100
[2023-08-31] MEDS: SODIUM CHLORIDE 0.9% 1,000 ML IV ONE ×2 (22:20→22:45)
[2023-08-31] MEDS: ALBUMIN 5% 250 ML IV ONE ×3 (22:37→23:35)
[2023-09-01] VITALS (8 sets, daily range): BP systolic 93–104; BP diastolic 52–59; PULSE 84–101; RESP 12–18; TEMP 97.7–98.4; O2SAT 97–100
[2023-09-01] MEDS: PIPERACILLIN-TAZOB 3.375GM 100 ML IV ONE (00:29)
[2023-09-01 02:34] LABS: Urine Amorphous Crystal FEW /hpf (None Seen); Urine Bacteria FEW /hpf (None Seen); Urine Blood 1+ /uL (Negative); Urine Clarity Clear (Clear); Urine Color Yellow (Yellow); Urine Protein, UAD 1+ (Negative); Urine Specific Gravity 1.014 (1.001-1.035); Urine Urobilinogen Normal (Negative); Urine WBC 2 /hpf (0 - 5)
[2023-09-01 02:48] LABS: Lactic Acid w/Reflex 3.9 mmol/L (0.4-2.0)
[2023-09-01] MEDS ORDERED: ACETAMINOPHEN 325 MG TAB PO PRN (05:00)
[2023-09-01] MEDS ORDERED: DEXTROSE (50%) 50ML SYRG IV PRN (05:00)
[2023-09-01] MEDS ORDERED: VANCOMYCIN PER PHARMACY 0 MG IV SCH (05:00)
[2023-09-01] MEDS ORDERED: MORPHINE SULFATE INJ 2 MG/ml SYRG IV PRN ×2 (05:00)
[2023-09-01] MEDS ORDERED: NITROGLYCERIN 0.4 MG SL TAB SL PRN (05:00)
[2023-09-01] MEDS: HYDROcodone-ACET 5/325MG TAB PO PRN (05:49)
[2023-09-01 05:53] LABS: Base Excess -14.4 mmol/L (-2.0-2.0)
[2023-09-01] MEDS: SODIUM BICARB 8.4% 50Meq/50ml SYR Vial IV ONE ×3 (05:57→07:57)
[2023-09-01] MEDS: SODIUM BICARB 50mEq/50ml Vial 100 ML in SOD CHL 0.45% 1,000 ML IV ONE (06:01)
[2023-09-01] MEDS: VANCOMYCIN 1GM/200ML 200 ML IV ONE (06:11)
[2023-09-01] MEDS ORDERED: LACTATED RINGER'S 1,000 ML IV ONE (06:30)
[2023-09-01 07:29] LABS: Alanine Aminotransferase 34 U/L (7-40); Albumin 2.9 g/dL (3.2-4.8); Alkaline Phosphatase 685 U/L (46-116); Anion Gap 26 (5-15); Aspartate Aminotransferase 199 U/L (13-40); Calcium 7.1 mg/dL (8.5-10.1); Carbon Dioxide 10 mmol/L (20-30); Chloride 102 mmol/L (98-107); Glucose 145 mg/dL (74-106); Potassium 3.9 mmol/L (3.5-5.1); Sodium 138 mmol/L (136-145)
[2023-09-01 07:30] LABS: Bilirubin, Total 1.1 mg/dL (0.2-1.0); Total Protein 5.5 g/dL (5.7-8.2)
[2023-09-01 07:37] LABS: BUN/Creatinine Ratio 35.6 (10.0-20.0)
[2023-09-01 07:50] LABS: Blood Urea Nitrogen 149 mg/dL (9-23)
[2023-09-01] MEDS: InsuLIN REG 1unit/0.01ml Soln (100units/ml) SC SCH (08:00)
[2023-09-01] MEDS: ACCU-CHEK COMFORT CURVE STRIP VI SCH (08:15)
[2023-09-01 09:05] LABS: Amphetamine Screen, Urine Neg (NEGATIVE); Barbiturate Scree,Urine Neg (NEGATIVE); Benzodiazephine Screen, Urine Neg (NEGATIVE)
[2023-09-01 09:06] LABS: Cannabinoid Screen, Urine Neg (NEGATIVE); Cocaine Screen, Urine Neg (NEGATIVE); Opiate Scree,Urine Neg (NEGATIVE); Phencyclidine Screen, Urine Neg (NEGATIVE)
[2023-09-01 09:22] LABS: Creatinine, Urine 52.63 mg/dL (30.0-125.0)
[2023-09-01] MEDS: SODIUM BICARB 50mEq/50ml Vial 150 ML in D5W 5% 1,000 ML IV SCH (09:23)
[2023-09-01] MEDS: PIPERACILLIN-TAZOB 3.375GM 100 ML IV SCH (12:13)
[2023-09-01 13:24] LABS: Basophils # (auto) 0 10 ^3/uL (0-0.2); Eosinophils # (auto) 0 10 ^3/uL (0-0.8); Hemoglobin 7.1 g/dL (12.2-16.2); Lymphocytes # (auto) 0.2 10 ^3/uL (0.4-5.4); Mean Corpuscular Volume 85.2 fL (80.0-100.0)
[2023-09-01 13:27] LABS: Basophils % (auto) 0.1 % (0.0-2.0); Hematocrit 22.2 % (36.0-46.0); Lymphocytes % (auto) 1.7 % (10.0-50.0); Mean Corpuscular Hemoglobin 27.2 pg (28.0-32.0); Mean Corpuscular Hgb Conc. 31.9 g/dL (32.0-36.0); Monocytes # (auto) 0.5 10 ^3/uL (0-1.3); Monocytes % (auto) 5.3 % (0.0-12.0); Neutrophils # (auto) 8.5 10 ^3/uL (1.6-8.6); Neutrophils % (auto) 92.9 % (37.0-80.0); Nucleated Red Blood Cells % 0.1 %; Red Blood Cells 2.61 10^6/uL (4.0-5.20); Red Cell Distribution Width 23.2 % (11.8-14.3); White Blood Cell 9.2 10^3/uL (4.4-10.8)
[2023-09-01 13:57] LABS: Lactic Acid w/Reflex 3.3 mmol/L (0.4-2.0)
[2023-09-01] MEDS: cefTRIAXone 1GM/50ML D5W 50 ML IV ONE (13:59)
[2023-09-01 14:00] LABS: Triglycerides 645 mg/dL (< 150)
[2023-09-01 14:01] LABS: Alanine Aminotransferase 28 U/L (7-40); Albumin 2.7 g/dL (3.2-4.8); Alkaline Phosphatase 608 U/L (46-116); Anion Gap 23 (5-15); Aspartate Aminotransferase 144 U/L (13-40); BUN/Creatinine Ratio 35.4 (10.0-20.0); Calcium 7.1 mg/dL (8.5-10.1); Carbon Dioxide 17 mmol/L (20-30); Chloride 104 mmol/L (98-107); Cholesterol 179 mg/dL (< 200); Glucose 98 mg/dL (74-106); HDL Cholesterol 16 mg/dL (40-59); Potassium 2.9 mmol/L (3.5-5.1); Sodium 144 mmol/L (136-145); Total Protein 5.2 g/dL (5.7-8.2)
[2023-09-01] MEDS: ONDANSETRON HCL 4 MG/2 ML VIAL IV PRN (14:13)
[2023-09-01 15:02] LABS: Blood Urea Nitrogen 138 mg/dL (9-23)
[2023-09-01] MEDS: POTASSIUM CHL 20MEQ/100ML 100 ML IV SCH (17:50)
[2023-09-01] MEDS: ERGOCALCIFEROL 50,000 UNIT(1.25MG) CAP PO SCH (20:13)
[2023-09-01 20:15] LABS: % Iron Saturation 34.7 % (15-50)
[2023-09-01 20:18] LABS: Folate (Folic Acid) 6.12 ng/mL (>5.38)
[2023-09-01 20:19] LABS: Ferritin 806.5 ng/mL (10-291)
[2023-09-01 20:33] LABS: INR 1.42 (0.9-1.15); Partial Thromboplastin Time 25.8 SEC (24.5-34.5); Prothrombin Time 14.7 sec (9.3-11.8)
[2023-09-01 20:34] LABS: Chloride 106 mmol/L (98-107); Potassium 3.5 mmol/L (3.5-5.1); Sodium 146 mmol/L (136-145)
[2023-09-01 20:35] LABS: Anion Gap 21 (5-15); Calcium 6.9 mg/dL (8.5-10.1); Carbon Dioxide 19 mmol/L (20-30)
[2023-09-01 20:40] LABS: BUN/Creatinine Ratio 39.5 (10.0-20.0); Glucose 137 mg/dL (74-106)
[2023-09-01 21:04] LABS: Blood Urea Nitrogen 139 mg/dL (9-23); Lactic Acid w/Reflex 3.8 mmol/L (0.4-2.0)
[2023-09-02 03:49] LABS: Basophils # (auto) 0 10 ^3/uL (0-0.2); Eosinophils # (auto) 0 10 ^3/uL (0-0.8); Lymphocytes # (auto) 0.2 10 ^3/uL (0.4-5.4); Monocytes # (auto) 0.4 10 ^3/uL (0-1.3); Neutrophils % (auto) 93.1 % (37.0-80.0)
[2023-09-02 03:53] LABS: Basophils % (auto) 0.2 % (0.0-2.0); Hematocrit 24.4 % (36.0-46.0); Lymphocytes % (auto) 1.9 % (10.0-50.0); Mean Corpuscular Hgb Conc. 32.5 g/dL (32.0-36.0); Monocytes % (auto) 4.8 % (0.0-12.0); Neutrophils # (auto) 8.7 10 ^3/uL (1.6-8.6); Red Blood Cells 2.84 10^6/uL (4.0-5.20); White Blood Cell 9.3 10^3/uL (4.4-10.8)
[2023-09-02 03:57] LABS: Red Cell Distribution Width 21.8 % (11.8-14.3)
[2023-09-02 05:44] LABS: Chloride 108 mmol/L (98-107); Potassium 3.1 mmol/L (3.5-5.1); Sodium 147 mmol/L (136-145)
[2023-09-02 05:49] LABS: Anion Gap 19 (5-15); Calcium 7.3 mg/dL (8.7-10.4); Carbon Dioxide 20 mmol/L (20-30)
[2023-09-02 05:53] LABS: Alkaline Phosphatase 548 U/L (46-116)
[2023-09-02 05:54] LABS: BUN/Creatinine Ratio 33.1 (10.0-20.0); Glucose 138 mg/dL (74-106)
[2023-09-02 05:55] LABS: Alanine Aminotransferase 19 U/L (7-40)
[2023-09-02 05:56] LABS: Albumin 2.3 g/dL (3.2-4.8); Aspartate Aminotransferase 103 U/L (13-40); Bilirubin, Total 0.8 mg/dL (0.2-1.0); Total Protein 4.8 g/dL (5.7-8.2)
[2023-09-02 06:29] LABS: Blood Urea Nitrogen 102 mg/dL (9-23)
[2023-09-02 06:46] LABS: Base Excess -1.9 mmol/L (-2.0-2.0)
[2023-09-02 07:30] VITALS: PULSE 99; RESP 15; O2SAT 96
[2023-09-02] MEDS: POTASSIUM CHL 20MEQ/100ML 100 ML IV ONE (08:11)
[2023-09-02] MEDS: SODIUM CHLORIDE 0.9% 1,000 ML IV SCH (09:00)
[2023-09-02 09:09] LABS: Lactic Acid w/Reflex 4.5 mmol/L (0.4-2.0)
[2023-09-02] MEDS: cefTRIAXone 1GM/50ML D5W 50 ML IV SCH (09:17)
[2023-09-02] MEDS: PANTOPRAZOLE 40 MG/10 ML VIAL INJ IV SCH (10:07)
[2023-09-02] MEDS: ONDANSETRON HCL 4 MG/2 ML VIAL IV ONE (15:14)
[2023-09-02] MEDS: METOCLOPRAMIDE HCL 5MG/ml INJ 2ml VIAL IV PRN (15:14)
[2023-09-02 15:17] VITALS: BP 102/73; PULSE 108; RESP 16; TEMP 97.6; O2SAT 96
[2023-09-02] MEDS ORDERED: GLIP10TA9 PO (15:23)
[2023-09-02] MEDS ORDERED: ONDA-188 PO (15:23)
[2023-09-02] MEDS ORDERED: AMLO1TAB22 PO (15:23)
[2023-09-02] MEDS ORDERED: LOSA-534 PO (15:23)
[2023-09-02] MEDS ORDERED: FERR325T20 PO (15:23)
[2023-09-02] MEDS ORDERED: HYDR-4902 PO (15:46)
[2023-09-02 17:03] VITALS: BP 106/66; PULSE 105; RESP 16; TEMP 97.1; O2SAT 95
[2023-09-02] MEDS: VANCOMYCIN 500 MG in D5W 5% 100 ML IV ONE (18:02)
[2023-09-02] MEDS: ONDANSETRON HCL 4 MG/2 ML VIAL IV SCH (18:02)
[2023-09-02 19:24] LABS: Basophils # (auto) 0 10 ^3/uL (0-0.2); Basophils % (auto) 0.2 % (0.0-2.0); Eosinophils # (auto) 0 10 ^3/uL (0-0.8); Hemoglobin 10.4 g/dL (12.2-16.2)
[2023-09-02 19:25] LABS: Lymphocytes # (auto) 0.2 10 ^3/uL (0.4-5.4); Lymphocytes % (auto) 1.7 % (10.0-50.0); Mean Corpuscular Hemoglobin 27.1 pg (28.0-32.0); Mean Corpuscular Hgb Conc. 31.5 g/dL (32.0-36.0); Monocytes # (auto) 0.6 10 ^3/uL (0-1.3); Monocytes % (auto) 4.2 % (0.0-12.0); Neutrophils # (auto) 13.3 10 ^3/uL (1.6-8.6); Neutrophils % (auto) 93.9 % (37.0-80.0); Red Blood Cells 3.84 10^6/uL (4.0-5.20); White Blood Cell 14.2 10^3/uL (4.4-10.8)
[2023-09-02 19:42] LABS: Alanine Aminotransferase 19 U/L (7-40); Alkaline Phosphatase 631 U/L (46-116); Calcium 7.8 mg/dL (8.5-10.1); Carbon Dioxide 18 mmol/L (20-30); Chloride 108 mmol/L (98-107)
[2023-09-02 19:43] LABS: Albumin 2.6 g/dL (3.2-4.8); Anion Gap 19 (5-15); Aspartate Aminotransferase 96 U/L (13-40); BUN/Creatinine Ratio 32.8 (10.0-20.0); Bilirubin, Total 0.8 mg/dL (0.2-1.0); Glucose 146 mg/dL (74-106); Magnesium 1.7 mg/dL (1.6-2.6); Phosphorus 2.9 mg/dL (2.4-5.1); Potassium 3.3 mmol/L (3.5-5.1); Sodium 145 mmol/L (136-145); Total Protein 5.2 g/dL (5.7-8.2)
[2023-09-02 19:46] LABS: Red Cell Distribution Width 22.8 % (11.8-14.3)
[2023-09-02 19:55] LABS: Blood Urea Nitrogen 86 mg/dL (9-23); Lactic Acid w/Reflex 6.6 mmol/L (0.4-2.0)
[2023-09-02 20:00] VITALS: PULSE 100; PULSE 99; RESP 16; O2SAT 98
[2023-09-02 21:00] VITALS: BP 116/65; PULSE 99; RESP 16; TEMP 98.1; O2SAT 98
[2023-09-03] VITALS (7 sets, daily range): BP systolic 113–128; BP diastolic 63–75; PULSE 93–104; RESP 16–20; TEMP 97.7–98.3; O2SAT 97–99
[2023-09-03 07:06] LABS: INR 1.38 (0.9-1.15); Partial Thromboplastin Time 26.8 SEC (24.5-34.5); Prothrombin Time 14.3 sec (9.3-11.8)
[2023-09-03 07:22] LABS: Basophils # (auto) 0 10 ^3/uL (0-0.2); Basophils % (auto) 0.1 % (0.0-2.0); Eosinophils # (auto) 0 10 ^3/uL (0-0.8); Hematocrit 28.7 % (36.0-46.0); Lymphocytes # (auto) 0.3 10 ^3/uL (0.4-5.4); Lymphocytes % (auto) 2.6 % (10.0-50.0); Mean Corpuscular Hemoglobin 27.1 pg (28.0-32.0); Mean Corpuscular Hgb Conc. 31.2 g/dL (32.0-36.0); Mean Corpuscular Volume 86.7 fL (80.0-100.0); Monocytes # (auto) 0.6 10 ^3/uL (0-1.3); Monocytes % (auto) 5.2 % (0.0-12.0); Neutrophils # (auto) 11.1 10 ^3/uL (1.6-8.6); Neutrophils % (auto) 92.1 % (37.0-80.0); Nucleated Red Blood Cells % 0.1 %; Red Blood Cells 3.32 10^6/uL (4.0-5.20); White Blood Cell 12.1 10^3/uL (4.4-10.8)
[2023-09-03 07:24] LABS: Red Cell Distribution Width 22.7 % (11.8-14.3)
[2023-09-03 07:39] LABS: Lactic Acid w/Reflex 7.6 mmol/L (0.4-2.0)
[2023-09-03] MEDS: POTASSIUM CHL 20MEQ/100ML 100 ML IV ONE (08:29)
[2023-09-03 09:09] LABS: Alanine Aminotransferase 22 U/L (7-40); Albumin 2.4 g/dL (3.2-4.8); Alkaline Phosphatase 573 U/L (46-116); Anion Gap 18 (5-15); Aspartate Aminotransferase 85 U/L (13-40); BUN/Creatinine Ratio 33.1 (10.0-20.0); Blood Urea Nitrogen 79 mg/dL (9-23); Carbon Dioxide 16 mmol/L (20-30); Chloride 109 mmol/L (98-107); Glucose 80 mg/dL (74-106); Potassium 3.1 mmol/L (3.5-5.1); Sodium 143 mmol/L (136-145)
[2023-09-03 09:10] LABS: Bilirubin, Total 0.8 mg/dL (0.2-1.0); Total Protein 4.8 g/dL (5.7-8.2)
[2023-09-03] MEDS ORDERED: SODIUM BICARB 50mEq/50ml Vial 50 ML in D5W 5% 1,000 ML IV SCH (09:45)
[2023-09-03] MEDS: CEFEPIME 2GM/50ML NS 50 ML IV SCH (10:01)
[2023-09-03] MEDS: SODIUM BICARB 50mEq/50ml Vial 100 ML in D5W 5% 1,000 ML IV SCH (12:00)
[2023-09-03] MEDS: POTASSIUM CHL 20MEQ/100ML 100 ML IV SCH (13:02)
[2023-09-03] MEDS: POTASSIUM EFFERVESENT TAB 25 MEQ GT ONE (14:45)
[2023-09-03] MEDS ORDERED: LORazepam 2MG/ML-1ML VIAL IV PRN (17:45)
[2023-09-04 01:00] VITALS: BP 127/60; PULSE 92; RESP 22; TEMP 98.1; O2SAT 98
[2023-09-04 05:00] VITALS: BP 134/61; PULSE 100; RESP 22; TEMP 97.9; O2SAT 99
[2023-09-04 09:00] VITALS: BP 112/49; PULSE 99; RESP 20; TEMP 98.4; O2SAT 98
[2023-09-04 13:00] VITALS: BP 104/55; PULSE 97; RESP 20; TEMP 97.5; O2SAT 98
[2023-09-04 17:00] VITALS: BP 110/40; PULSE 97; RESP 18; TEMP 98.3; O2SAT 96
[2023-09-04] MEDS: LOPERAMIDE HCL 2 MG CAP/TAB PO PRN (17:45)
[2023-09-04 21:00] VITALS: BP 113/56; PULSE 106; RESP 18; TEMP 98.1; O2SAT 96
[2023-09-05 01:00] VITALS: BP 114/55; PULSE 96; RESP 18; TEMP 97.7; O2SAT 97
[2023-09-05 05:00] VITALS: BP 119/62; PULSE 100; RESP 18; TEMP 97.6; O2SAT 99
[2023-09-05 09:00] VITALS: BP 130/51; PULSE 104; RESP 16; TEMP 97.6; O2SAT 97
[2023-09-05 09:49] VITALS: TEMP 36.4
== END 2023-09-05 13:00 | disposition hospice, home (50) | DRG 720 ==
LOC: ER 17:32 → EDBD 17:32 → TELE 09-01 05:03 → EAST 09-02 15:00 → TELE-EAST 09-02 19:54 → EAST 09-03 17:48
PROVIDERS: ADMIT Internal Medicine; ATTEND Internal Medicine
PROC: 30233N1 Transfusion of Nonautologous Red Blood Cells into Peripheral Vein, Percutaneous Approach (ICD-10-PCS; principal; 2023-09-01)
DX: A41.9 Sepsis, unspecified organism (principal); N17.0 Acute kidney failure with tubular necrosis; E13.10 Other specified diabetes mellitus with ketoacidosis without coma; I12.0 Hypertensive chronic kidney disease with stage 5 chronic kidney disease or end stage renal disease; D69.6 Thrombocytopenia, unspecified; N18.6 End stage renal disease; K92.2 Gastrointestinal hemorrhage, unspecified; E11.22 Type 2 diabetes mellitus with diabetic chronic kidney disease; E78.5 Hyperlipidemia, unspecified; Z51.5 Encounter for palliative care; S21.002A Unspecified open wound of left breast, initial encounter; N61.0 Mastitis without abscess; N28.1 Cyst of kidney, acquired; R65.20 Severe sepsis without septic shock; N20.0 Calculus of kidney; E86.1 Hypovolemia; D50.9 Iron deficiency anemia, unspecified; R74.01 Elevation of levels of liver transaminase levels; E87.6 Hypokalemia; Z83.3 Family history of diabetes mellitus; Z80.3 Family history of malignant neoplasm of breast; Z92.3 Personal history of irradiation; Z90.12 Acquired absence of left breast and nipple; Z86.73 Personal history of transient ischemic attack (TIA), and cerebral infarction without residual deficits; Z85.3 Personal history of malignant neoplasm of breast; Z88.0 Allergy status to penicillin; Z85.05 Personal history of malignant neoplasm of liver; X58.XXXA Exposure to other specified factors, initial encounter; Y93.89 Activity, other specified; Y92.89 Other specified places as the place of occurrence of the external cause; Y99.8 Other external cause status
CPT/HCPCS: 36415; 36430; 36600; 71250; 74176; 76775; 80048; 80053; 80061; 80202; 80307; 81001; 82010; 82270; 82306; 82550; 82570; 82607; 82728; 82746; 82805; 82962; 83010; 83036; 83540; 83550; 83605; 83615; 83735; 83880; 83935; 84100; 84300; 84443; 84484; 85025; 85045; 85610; 85730; 86850; 86900; 86901; 86920; 87040; 87077; 87086; 87186; 87205; 93005; 96365; 96367; 99291; G0378; J0692; J1815; J2405; J2470; J2543; J3480; J7060